=== PATIENT | female | born 1990 | race Caucasian/White ===

== ENCOUNTER 2017-06-20 19:33 | Emergency (ER) | payer MEDICAID ==
--- NOTE | 2017-06-20 21:10 | EDM.PDOC ---
ED HPI GENERAL MEDICAL PROBLEM - General Chief Complaint: ENT Problem Stated Complaint: EARACHE Time Seen by Provider: 06/20/17 20:28 Source of Information: Reports: Patient History Limitations: Reports: No Limitations - History of Present Illness INITIAL COMMENTS - FREE TEXT/NARRATIVE: This lady comes in for a problem with her right ear. She's had pain on and off for months. Recently she was put on some type of the nasal spray but doesn't know if it's a steroid or not. She did see an hand stoner at one time but her ear was not hurting on that particular day. Today the pain seems to be much worse than usual. Her hearing seemed to be okay are just a little bit decreased. - Related Data Allergies Allergy/AdvReac Type Severity Reaction Status Date / Time No Known Allergies Allergy Verified 06/20/17 20:03 Home Meds: Home Meds Cetirizine HCl [Allergy] 06/20/17 [History] Fluticasone Propionate [Flonase] 06/20/17 [History] Social & Family History - Tobacco Use Smoking Status *Q: Never Smoker ED ROS ENT - Review of Systems Review Of Systems: ROS reveals no pertinent complaints other than HPI. ED EXAM, ENT - Physical Exam Exam: See Below Exam Limited By: Other (Exam Limited to the right ear and pharynx) General Appearance: Alert, WD/WN, No Apparent Distress Ears: Other (Ear canal is normal. Tympanic membrane is crystal clear but retracted.) Nose: Normal Inspection Mouth/Throat: Normal Inspection Course - Vital Signs Last Recorded V/S: Last Vital Signs Temp 35.9 C 06/20/17 20:09 Pulse 85 06/20/17 20:09 Resp 14 06/20/17 20:09 BP 150/78 H 06/20/17 20:09 Pulse Ox 98 06/20/17 20:09 Departure - Departure Time of Disposition: 21:08 Disposition: Home, Self-Care 01 Condition: Fair Clinical Impression: Acute otalgia, Eustachian tube dysfunction - Discharge Information Instructions: Eustachian Tube Dysfunction, Earache, Adult Referrals: PCP,None [Primary Care Provider] - Forms: ED Department Discharge Additional Instructions: Take the prednisone 4 tablets daily for 5 days. This will help reduce inflammation and hopefully open up your eustachian tube. This will equalize the pressure behind her eardrum. Right now there is a vacuum that sucking in your eardrum against the little bones inside the right ear and this is causing pain
== END 2017-06-20 21:43 | disposition home or self-care (01) ==
LOC: JP.ED 19:33
DX: H69.91 Unspecified Eustachian tube disorder, right ear (principal)
CPT/HCPCS: 99283

== ENCOUNTER 2017-06-26 18:59 | Emergency (ER) | payer MEDICAID ==
[2017-06-26] MEDS ORDERED: Lidocaine 4% Top Soln LTA 4 ML SYRINGE TOP ONE (19:47)
--- NOTE | 2017-06-26 19:51 | EDM.PDOC ---
ED HPI GENERAL MEDICAL PROBLEM - General Chief Complaint: ENT Problem Stated Complaint: RT EAR PAIN Time Seen by Provider: 06/26/17 19:35 Source of Information: Reports: Patient, RN Notes Reviewed History Limitations: Reports: No Limitations - History of Present Illness INITIAL COMMENTS - FREE TEXT/NARRATIVE: 27-year-old female presents emergency department today complaint of right ear pain she states she's had right ear pain for several months on and off has visited with ENT has been seen in the emergency department for this problem she did try prednisone which gave her some relief but as soon as the prednisone was stopped the pain returns Treatments REGISTERED RADIOLOGIC TECHNOLOGIST: Reports: Other Medication(s), Other (see below) Other Treatments REGISTERED RADIOLOGIC TECHNOLOGIST: Prednisone - Related Data Allergies Allergy/AdvReac Type Severity Reaction Status Date / Time No Known Allergies Allergy Verified 06/20/17 20:03 Home Meds: Home Meds NK [No Known Home Meds] 06/26/17 [History] 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 Denies: Ear Discharge, Throat Pain, Throat Swelling Respiratory: Reports: No Symptoms Cardiovascular: Reports: No Symptoms GI/Abdominal: Reports: No Symptoms : Reports: No Symptoms ED EXAM, ENT - Physical Exam Exam: See Below Exam Limited By: No Limitations General Appearance: Alert, WD/WN, No Apparent Distress Eye Exam: Bilateral Eye: Normal Inspection Ears: Normal External Exam, Normal Canal, Hearing Grossly Normal, Normal TMs Nose: Normal Inspection Mouth/Throat: Normal Inspection, Normal Teeth, Dental Trauma. No: Dental Pain, Dental Tenderness, Tonsillar Erythema, Tonsillar Exudates, Uvular Deviation Head: Atraumatic, Normocephalic Course - Vital Signs Last Recorded V/S: Last Vital Signs Temp 97.6 F 06/26/17 19:15 Pulse 82 06/26/17 19:15 Resp 16 06/26/17 19:15 BP 126/82 06/26/17 19:15 Pulse Ox 98 06/26/17 19:15 - Orders/Labs/Meds Meds: Medications Discontinued Medications Generic Name Dose Route Start Last Admin Trade Name Dahlia MASTERS Reason Stop Dose Admin Lidocaine 4 ml 06/26/17 19:47 Lta 360 Kit Top Soln TOP 06/26/17 19:48 ONETIME ONE Lidocaine HCl 2 ml 06/26/17 19:52 06/26/17 19:56 Xylocaine 4% Top Soln TOP 06/26/17 19:53 3 drop ONETIME ONE Administration Departure - Departure Time of Disposition: 20:03 Disposition: Home, Self-Care 01 Condition: Good Clinical Impression: Otalgia of right ear - Discharge Information Referrals: PCP,None [Primary Care Provider] - Forms: ED Department Discharge Additional Instructions: Continue to use lidocaine topical as needed for pain control, please keep your follow-up appointment with your primary care tomorrow, a referral has been [facility] from July 08 at 8:15 in the morning, call or return to the emergency department worsening of symptoms - Assessment/Plan Plan: Assessment Acuity = acute Site and laterality = otalgia Etiology = suspicious for dental source Manifestations = none Location of injury = Home Lab values = none Plan She had some relief from the lidocaine topical, did set up referral for July 08 dental clinic 8:15 in the morning she follow-up with her primary care tomorrow This note was dictated using [employer] voice recognition software please call with any questions on syntax or kesha.
[2017-06-26] MEDS ORDERED: Lidocaine 4% Top Soln 50 ML Bottle TOP ONE (19:52)
== END 2017-06-26 20:11 | disposition home or self-care (01) ==
LOC: JP.ED 18:59
DX: H92.01 Otalgia, right ear (principal)
CPT/HCPCS: 99283; A9270

== ENCOUNTER 2018-07-08 22:10 | Emergency (ER) | payer MEDICAID ==
--- NOTE | 2018-07-08 22:38 | EDM.PDOC ---
ED HPI GENERAL MEDICAL PROBLEM - General Chief Complaint: Eye Problems Stated Complaint: EYES, RED, ITCHY Time Seen by Provider: 07/08/18 22:20 Source of Information: Reports: Patient History Limitations: Reports: No Limitations - History of Present Illness INITIAL COMMENTS - FREE TEXT/NARRATIVE: 28-year-old female developed rather sudden redness and itching of both eyes, slightly worse on the right side. She tried some lubricating drops and it didn' t help. No visual changes. No previous allergy reactions. No significant pain. 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 EDC October 26 2018 Psychiatric History: Reports: Anxiety, Depression - Infectious Disease History Infectious Disease History: Reports: Chicken Pox Social & Family History - Family History Family Medical History: Noncontributory - Tobacco Use Smoking Status *Q: Never Smoker - Caffeine Use Caffeine Use: Reports: Soda - Recreational Drug Use Recreational Drug Use: No ED ROS GENERAL - Review of Systems Review Of Systems: See Below Constitutional: Denies: Fever HEENT: Denies: Sinus Problem Respiratory: Denies: Shortness of Breath, Wheezing GI/Abdominal: Denies: Nausea, Vomiting Skin: Reports: No Symptoms ED EXAM GENERAL W FULL EYE - Physical Exam Exam: See Below Exam Limited By: No Limitations General Appearance: Alert, No Apparent Distress, Anxious Eye Exam: Bilateral Eye: Conjunctival Injection, Other (Bilateral conjunctiva and scleral erythema, no matter or significant exudate) Eyelids: Bilateral: Erythema Conjunctiva & Sclera: Bilateral: Injected Cornea Exam: Bilateral: Normal Appearance Head: Atraumatic Respiratory/Chest: No Respiratory Distress, Lungs Clear Course - Vital Signs Last Recorded V/S: Last Vital Signs Temp 96.3 F 07/08/18 22:23 Pulse 91 07/08/18 22:23 Resp 11 L 07/08/18 22:23 BP 126/67 07/08/18 22:23 Pulse Ox 97 07/08/18 22:23 - Orders/Labs/Meds Meds: Medications Discontinued Medications Generic Name Dose Route Start Last Admin Trade Name Dahlia PRN Reason Stop Dose Admin Prednisolone Acetate 0.1 ml 07/09/18 06:00 07/08/18 22:38 Pred Forte 1% Ophth Susp EYEBOTH 1 drop QID ELIZABETH Administration Prednisolone Acetate 0.1 ml 07/09/18 06:00 Pred Forte 1% Ophth Susp EYEBOTH QID ELIZABETH - Re-Assessments/Exams Free Text/Narrative Re-Assessment/Exam: 07/08/18 22:37 This patient is having some type of an acute allergic reaction to an exposure to her eyes. She'll be placed on Pred Forte eyedrops 1 drop each eye every 4 hours until improved. Recheck with optometry tomorrow if not significantly improved. Departure - Departure Time of Disposition: 22:39 Disposition: Home, Self-Care 01 Condition: Good Clinical Impression: Allergic conjunctivitis of both eyes - Discharge Information Instructions: Allergic Conjunctivitis, Adult, [id number] Referrals: Xuan Benjamin CNM [Primary Care Provider] - Forms: ED Department Discharge Care Plan Goals: Use 1 drop in each eye every 4 hours until improved, up to 2 full days. Consider rechecking with optometry tomorrow if not improving satisfactorily.
[2018-07-08] MEDS ORDERED: prednisoLONE Acetate 1% Ophth Susp 5 ML Bottle EYEBOTH SCH (23:00)
[2018-07-09] MEDS ORDERED: prednisoLONE Acetate 1% Ophth Susp 5 ML Bottle EYEBOTH SCH ×2 (06:00)
== END 2018-07-08 22:51 | disposition home or self-care (01) ==
LOC: JP.ED 22:10
DX: H10.13 Acute atopic conjunctivitis, bilateral (principal); F41.9 Anxiety disorder, unspecified; F32.9 Major depressive disorder, single episode, unspecified; Z79.899 Other long term (current) drug therapy
CPT/HCPCS: 99283; A9270-GY

== ENCOUNTER 2018-10-24 19:31 | Inpatient (IN) | payer MEDICAID ==
[2018-10-24] MEDS ORDERED: Sodium Chloride 0.9% 10 ML Syringe FLUSH PRN ×3 (19:57→21:44)
[2018-10-24] MEDS ORDERED: Lactated Ringers 1,000 ML IV ONE (20:00)
[2018-10-24] MEDS ORDERED: Ropivacaine 100 ML ONE (20:38)
[2018-10-24] MEDS ORDERED: ePHEDrine 50 MG/ML SDV ONE (20:47)
[2018-10-24] MEDS ORDERED: Ondansetron 4 MG/2 ML SDV IV PRN (20:49)
--- NOTE | 2018-10-24 20:58 | PCM.LDHP ---
L&D History of Present Illness - General Date of Service: 10/24/18 Admit Problem/Dx: Patient Status Order with Admit Dx/Problem 10/24/18 19:57 Patient Status [ADT] Routine 10/24/18 20:49 Patient Status [ADT] Routine Admission Diagnosis/Problem Admission Diagnosis/Problem - Related Data Allergies/Adverse Reactions: Allergies Allergy/AdvReac Type Severity Reaction Status Date / Time No Known Allergies Allergy Verified 07/08/18 22:26 Home Medications: Home Meds PNV95/Ferrous Fumarate/FA [ Vitamins Tablet] 1 tab PO DAILY 07/08/18 [ History] Sertraline [Zoloft] 50 mg PO DAILY 07/08/18 [History] hydrOXYzine HCl [hydrOXYzine] 25 mg PO BEDTIME 10/10/18 [History] Past Medical History HEENT History: Reports: Otitis Media Respiratory History: Reports: Other (See Below) Other Respiratory History: bronchospasms uses an inhaler prn 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 EDC October 26 2018 Psychiatric History: Reports: Anxiety, Depression - Infectious Disease History Infectious Disease History: Reports: Chicken Pox - Past Surgical History Female Surgical History: Reports: D&C Social & Family History - Family History Family Medical History: Noncontributory - Tobacco Use Smoking Status *Q: Former Smoker Used Tobacco, but Quit: Yes Month/Year Tobacco Last Used: October Second Hand Smoke Exposure: No - Caffeine Use Caffeine Use: Reports: Soda - Recreational Drug Use Recreational Drug Use: No H&P Review of Systems - Review of Systems: Review Of Systems: See Below General: Reports: No Symptoms HEENT: Reports: No Symptoms Pulmonary: Reports: No Symptoms Cardiovascular: Reports: No Symptoms Gastrointestinal: Reports: No Symptoms Genitourinary: Reports: No Symptoms Musculoskeletal: Reports: No Symptoms Skin: Reports: No Symptoms Psychiatric: Reports: No Symptoms Neurological: Reports: No Symptoms Hematologic/Lymphatic: Reports: No Symptoms Immunologic: Reports: No Symptoms L&D Exam - Exam Exam: See Below - Vital Signs Weight: 73 kg - OB Specific Contraction Intensity: Strong Movement: Active Heart Tones: Present Heart Rate (FHR) Variability: Moderate (6-25 bmp) Presentation: Vertex - Exam General: Alert, Oriented, Cooperative HEENT: PERRLA, Conjunctiva Clear, EACs Clear, EOMI, Hearing Intact, Mucosa Moist & [place], Nares Patent, Normal Nasal Septum, Posterior Pharynx Clear, Pupils Equal, Pupils Reactive, TMs Clear Neck: Supple, Trachea Midline Lungs: Clear to Auscultation, Normal Respiratory Effort Cardiovascular: Regular Rate, Regular Rhythm GI/Abdominal Exam: Normal Bowel Sounds, Soft, Non-Tender, No Organomegaly, No Distention, No Abnormal Bruit, No Mass, Pelvis Stable Rectal Exam: Normal Exam, Normal Rectal Tone Genitourinary: Normal external exam, Normal bimanual exam, Normal speculum exam , Cervical dilitation Back Exam: Normal Inspection, Full Range of Motion Extremities: Normal Inspection, Normal Range of Motion, Non-Tender, No Pedal Edema, Normal Capillary Refill Skin: Warm, Dry, Intact Neurological: Cranial Nerves Intact, Reflexes Equal Bilateral Psychiatric: Alert, Normal Affect, Normal Mood - Patient Data Lab Results Last 24 hrs: Laboratory Results - last 24 hr 10/24/18 10/24/18 10/24/18 Range/Units 19:57 19:57 19:57 WBC 12.1 H (4.5-11.0) K/uL RBC 4.40 (3.30-5.50) M/uL Hgb 11.2 L (12.0-15.0) g/dL Hct 35.4 L (36.0-48.0) % MCV 81 (80-98) fL MCH 26 L (27-31) pg MCHC 32 (32-36) % Plt Count 217 (150-400) K/uL Neut % (Auto) 75 H (36-66) % Lymph % (Auto) 16 L (24-44) % Prentiss % (Auto) 8 H (2-6) % Eos % (Auto) 1 L (2-4) % Baso % (Auto) 0 (0-1) % Urine Color Yellow Urine Appearance Slightly cloudy Urine pH 7.0 (4.5-8.0) Ur Specific [place] 1.015 (1.008-1.030) Urine Protein Negative (NEGATIVE) mg/dL Urine Glucose (UA) Normal (NEGATIVE) mg/dL Urine Ketones Negative (NEGATIVE) mg/dL Urine Occult Blood Large (NEGATIVE) Urine Nitrite Negative (NEGATIVE) Urine Bilirubin Negative (NEGATIVE) Urine Urobilinogen Normal (NORMAL) mg/dL Ur Leukocyte Esterase Negative (NEGATIVE) Urine RBC 10-20 H (0-5) Urine WBC 0-5 (0-5) Ur Epithelial Cells Moderate Amorphous Sediment Not seen Urine Bacteria Moderate Urine Mucus Not seen Urine Opiates Screen Negative (NEGATIVE) Ur Oxycodone Screen Negative (NEGATIVE) Urine Methadone Screen Negative (NEGATIVE) Ur Propoxyphene Screen Negative (NEGATIVE) Ur Barbiturates Screen Negative (NEGATIVE) Ur Tricyclics Screen Negative (NEGATIVE) Ur Phencyclidine Scrn Negative (NEGATIVE) Ur Amphetamine Screen Negative (NEGATIVE) U Methamphetamines Scrn Negative (NEGATIVE) Urine MDMA Screen Negative (NEGATIVE) U Benzodiazepines Scrn Negative (NEGATIVE) U Cocaine Metab Screen Negative (NEGATIVE) U Marijuana (THC) Screen Negative (NEGATIVE) Result Diagrams: 10/24/18 19:57 - Problem List (1) Labor established SNOMED Code(s): 75729294 ICD Code: [id number] - Status: Acute Current Visit: Yes (2) SNOMED Code(s): 00140984 ICD Code: Z34.90 - ENCNTR FOR SUPRVSN OF NORMAL , UNSP, UNSP TRIMESTER Status: Acute Current Visit: Yes Problem List Initiated/Reviewed/Updated: Yes Orders Last 24hrs: Active Orders 24 hr Category Date Time Status Patient Status [ADT] Routine ADT 10/24/18 19:57 Active Patient Status [ADT] Routine ADT 10/24/18 20:49 Ordered Ambulate [RC] PER UNIT ROUTINE Care 10/24/18 20:49 Ordered Communication Order [RC] ASDIRECTED Care 10/24/18 19:57 Active Communication Order [RC] ASDIRECTED Care 10/24/18 20:49 Ordered Heart Tones [RC] PER UNIT ROUTINE Care 10/24/18 19:57 Active Heart Tones [RC] PER UNIT ROUTINE Care 10/24/18 20:49 Ordered Non Stress Test [RC] Click to Edit Care 10/24/18 19:57 Active Non Stress Test [RC] Click to Edit Care 10/24/18 20:49 Ordered May Shower [RC] ASDIRECTED Care 10/24/18 20:49 Ordered Notify Provider Vital Signs [RC] PRN Care 10/24/18 19:58 Active Notify Provider Vital Signs [RC] PRN Care 10/24/18 20:49 Ordered Notify Provider [RC] PRN Care 10/24/18 19:57 Active Notify Provider [RC] PRN Care 10/24/18 20:49 Ordered PCEA Epidural [RC] ASDIRECTED Care 10/24/18 20:37 Active PCEA Epidural [RC] ASDIRECTED Care 10/24/18 20:38 Active Up ad [place] [RC] ASDIRECTED Care 10/24/18 20:49 Ordered VTE/DVT Education [RC] Click to Edit Care 10/24/18 20:51 Ordered Vital Signs [RC] PER UNIT ROUTINE Care 10/24/18 19:57 Active Vital Signs [RC] PER UNIT ROUTINE Care 10/24/18 20:49 Ordered Ondansetron [Zofran] Med 10/24/18 20:49 Ordered 4 mg IV Q4H PRN Sodium Chloride 0.9% [Saline Flush] Med 10/24/18 19:57 Active 10 ml FLUSH ASDIRECTED PRN Sodium Chloride 0.9% [Saline Flush] Med 10/24/18 20:49 Ordered 10 ml FLUSH ASDIRECTED PRN DVT/VTE Prophylaxis Reflex [OM.PC] Routine Oth 10/24/18 20:49 Ordered Epidural Catheter Management [OM.PC] Routine Oth 10/24/18 20:37 Ordered Saline Lock Insert [OM.PC] Routine Oth 10/24/18 19:57 Ordered Saline Lock Insert [OM.PC] Routine Oth 10/24/18 20:49 Ordered Resuscitation Status Routine Resus Stat 10/24/18 19:57 Ordered Medication Orders Sodium Chloride (Saline Flush) 10 ml FLUSH ASDIRECTED PRN PRN Reason: Keep Vein Open Assessment/Plan Comment:: 10/24/2018 28 yo here at 39 5/7 gestational weeks came in in active labor SVE-4-5/90/-1 bulging bag of saucedo FHTs- category one Patient is requesting and epidural Plan- Get patient an epidural for pain control per her request Continue to monitor for active labor Continue to monitor FHTs Plan and anticipate a vaginal delivery
[2018-10-24] MEDS ORDERED: diphenhydrAMINE 50 MG/ML SDV IVPUSH PRN ×2 (21:44)
[2018-10-24] MEDS ORDERED: ePHEDrine 50 MG/ML SDV IVPUSH PRN (21:44)
[2018-10-24] MEDS ORDERED: Naloxone 0.4 MG/ML SDV IVPUSH PRN (21:44)
--- NOTE | 2018-10-24 22:09 | ANES ---
DATE OF SERVICE: 10/24/2018 TIME: 2039. INDICATION: I was called to the Labor and Delivery unit by Xuan Benjamin to evaluate Ms. Bright for a labor epidural. She is approximately 3 to 4 cm and progressing nicely. Risks and benefits of procedure were explained to the patient, she was proceed with labor epidural. TECHNIQUE: She was placed in a sitting position. Her back was prepped x3 with Betadine and 1% lidocaine skin local was used. The epidural was placed at L3-4 using a 17-gauge Tuohy needle in loss of resistance technique. The epidural had very good feel throughout, and the epidural space was easily identified. There was negative CSF, negative blood, negative paresthesias noted. Therefore, a catheter was threaded to 13 cm at the skin. There was negative CSF, negative blood, and negative paresthesias noted at the catheter as well. A 1.5% lidocaine test dose of 3 mL was given and this test dose was negative. Therefore, the catheter was secured with Tegaderm and tape and the patient was placed in a supine position. A bolus of 0.2% ropivacaine at 12 mL was given. The patient got very good relief from this. Therefore, a 0.2% ropivacaine drip was started at 12 mL/h. Her vital signs remained stable throughout the procedure and nurse was with me for the entire procedure. We will continue to monitor her throughout her Labor and Delivery stay. Srinivas Jesus CRNA /[id number]
[2018-10-25] MEDS ORDERED: Lanolin 100% Cream 40 GM Tube TOP PRN (00:01)
[2018-10-25] MEDS ORDERED: Witch Hazel Medicated Pads 100/Jar TOP PRN (00:01)
[2018-10-25] MEDS ORDERED: Benzocaine 20% Top Spray 56 GM Bottle TOP PRN (00:01)
[2018-10-25] MEDS ORDERED: Acetaminophen 325 MG Tab, 50 Tab Bulk Bottle PO PRN (00:04)
[2018-10-25] MEDS ORDERED: Ibuprofen 200 MG Tab, 24 Tab Bulk Bottle PO PRN (00:04)
[2018-10-25] MEDS: hydrOXYzine HCl 25 MG Tab PO PRN ×2 (01:49→19:49)
--- NOTE | 2018-10-25 08:08 | PCM.DEL ---
L & D Note - General Info Date of Service: 10/24/18 Mother's Due Date: 10/26/18 - Delivery Note Labor: Spontaneous Delivery Outcome: Livebirth Infant Delivery Method: Spontaneous Vaginal Delivery-Single Infant Delivery Mode: Spontaneous Presentation: Right Occiput Anterior (BILLY) Nuchal Cord: Present, Reduced Anesthesia Type: Epidural Amniotic Fluid Description: Clear Episiotomy Type: None Laceration: 1st Degree, Perineal Suture type: Vicryl Suture size: 3-0 Placenta: Intact, Spontaneous Cord: 3 Vessels Estimated Blood Loss: 250 Resuscitation Needed: No [place]: Bulb Syringe, Stimulated, Warmed Provider: Xuan Benjamin Score 1 min: 8 Score 5 min: 8 Score 10 min: 9 Second Stage Interventions: Reports: Second Nurse Assessed Progress of Descent, Second Nurse Reviewed Contraction Pattern, Encouragement Given, Pushing Effectively, Pushing, McRobert's Position, Pushing, Stirrups/Leg Supports Delivery Comments (Free Text/Narrative):: 28 yo here at 39 5/7 gestational weeks delivered a viable female at 2342 on 10/24/2018 in BILLY position over an intact perineum. Patient shortly before becoming complete did have some episodes of extreme restless legs, back pain, and what she said was one sided on her abdomen. Since patient was complete we worked with her and did different leg positioning to help with restless legs. did have a loose nuchal cord times one that was easily reduced during delivery of the head and shoulders. was then placed on prewarmed blanket on mothers abdomen. was a little stunned so some stimulation was done, drying of infant, and bulb suction was used. was still not as active and so was brought to warmer for initial assessment, cord was double clamped and cut by provider. Infant then began to pink in color and vigorously cry with some moderate stimulation, percussion, and bulb suction. APGARS-8/8/9, weight 7lbs 9oz, length-20.5 inches. Placenta then spontaneous and intact, EBL-250ml. First degree perineal repaired in usual fashion, no other lacerations noted of vagina, cervix, rectum, or labia. Infant now skin to skin with mother in labor room and both are stable. Stages of labor- 1st stage:[id number] 2nd stage: [id number] 3rd [id number] - General Info Date of Service: 10/25/18 Functional Status: Reports: Pain Controlled - Review of Systems General: Reports: No Symptoms HEENT: Reports: No Symptoms Pulmonary: Reports: No Symptoms Cardiovascular: Reports: No Symptoms Gastrointestinal: Reports: No Symptoms Genitourinary: Reports: No Symptoms Musculoskeletal: Reports: No Symptoms Skin: Reports: No Symptoms Neurological: Reports: No Symptoms Psychiatric: Reports: No Symptoms - Patient Data Vitals - Most Recent: Last Vital Signs Temp 36.2 C 10/25/18 03:27 Pulse 101 H 10/25/18 03:27 Resp 16 10/25/18 03:27 BP 127/68 10/25/18 03:27 Pulse Ox 97 10/25/18 00:45 Weight - Most Recent: 73 kg I&O - Last 24 Hours: Intake & Output 10/24/18 10/25/18 10/25/18 22:59 06:59 14:59 Intake Total 2517 Output Total 150 Balance 2367 Lab Results Last 24 Hours: Laboratory Results - last 24 hr 10/24/18 10/24/18 10/24/18 Range/Units 19:57 19:57 19:57 WBC 12.1 H (4.5-11.0) K/uL RBC 4.40 (3.30-5.50) M/uL Hgb 11.2 L (12.0-15.0) g/dL Hct 35.4 L (36.0-48.0) % MCV 81 (80-98) fL MCH 26 L (27-31) pg MCHC 32 (32-36) % Plt Count 217 (150-400) K/uL Neut % (Auto) 75 H (36-66) % Lymph % (Auto) 16 L (24-44) % [place] % (Auto) 8 H (2-6) % Eos % (Auto) 1 L (2-4) % Baso % (Auto) 0 (0-1) % Urine Color Yellow Urine Appearance Slightly cloudy Urine pH 7.0 (4.5-8.0) Ur Specific [place] 1.015 (1.008-1.030) Urine Protein Negative (NEGATIVE) mg/dL Urine Glucose (UA) Normal (NEGATIVE) mg/dL Urine Ketones Negative (NEGATIVE) mg/dL Urine Occult Blood Large (NEGATIVE) Urine Nitrite Negative (NEGATIVE) Urine Bilirubin Negative (NEGATIVE) Urine Urobilinogen Normal (NORMAL) mg/dL Ur Leukocyte Esterase Negative (NEGATIVE) Urine RBC 10-20 H (0-5) Urine WBC 0-5 (0-5) Ur Epithelial Cells Moderate Amorphous Sediment Not seen Urine Bacteria Moderate Urine Mucus Not seen Urine Opiates Screen Negative (NEGATIVE) Ur Oxycodone Screen Negative (NEGATIVE) Urine Methadone Screen Negative (NEGATIVE) Ur Propoxyphene Screen Negative (NEGATIVE) Ur Barbiturates Screen Negative (NEGATIVE) Ur Tricyclics Screen Negative (NEGATIVE) Ur Phencyclidine Scrn Negative (NEGATIVE) Ur Amphetamine Screen Negative (NEGATIVE) U Methamphetamines Scrn Negative (NEGATIVE) Urine MDMA Screen Negative (NEGATIVE) U Benzodiazepines Scrn Negative (NEGATIVE) U Cocaine Metab Screen Negative (NEGATIVE) U Marijuana (THC) Screen Negative (NEGATIVE) 10/25/18 Range/Units 06:02 WBC 23.1 H (4.5-11.0) K/uL RBC 4.19 (3.30-5.50) M/uL Hgb 10.3 L (12.0-15.0) g/dL Hct 33.9 L (36.0-48.0) % MCV 81 (80-98) fL MCH 25 L (27-31) pg MCHC 30 L (32-36) % Plt Count 189 (150-400) K/uL Neut % (Auto) (36-66) % Lymph % (Auto) (24-44) % [place] % (Auto) (2-6) % Eos % (Auto) (2-4) % Baso % (Auto) (0-1) % Urine Color Urine Appearance Urine pH (4.5-8.0) Ur Specific [place] (1.008-1.030) Urine Protein (NEGATIVE) mg/dL Urine Glucose (UA) (NEGATIVE) mg/dL Urine Ketones (NEGATIVE) mg/dL Urine Occult Blood (NEGATIVE) Urine Nitrite (NEGATIVE) Urine Bilirubin (NEGATIVE) Urine Urobilinogen (NORMAL) mg/dL Ur Leukocyte Esterase (NEGATIVE) Urine RBC (0-5) Urine WBC (0-5) Ur Epithelial Cells Amorphous Sediment Urine Bacteria Urine Mucus Urine Opiates Screen (NEGATIVE) Ur Oxycodone Screen (NEGATIVE) Urine Methadone Screen (NEGATIVE) Ur Propoxyphene Screen (NEGATIVE) Ur Barbiturates Screen (NEGATIVE) Ur Tricyclics Screen (NEGATIVE) Ur Phencyclidine Scrn (NEGATIVE) Ur Amphetamine Screen (NEGATIVE) U Methamphetamines Scrn (NEGATIVE) Urine MDMA Screen (NEGATIVE) U Benzodiazepines Scrn (NEGATIVE) U Cocaine Metab Screen (NEGATIVE) U Marijuana (THC) Screen (NEGATIVE) Med Orders - Current: Current Medications Acetaminophen (Tylenol Bulk Bottle) 325 mg PO Q4H PRN PRN Reason: Pain Last Admin: 10/25/18 02:18 Dose: 325 mg Benzocaine (Rgmf-L-Xwiqnvf 20% [place]) 0 gm TOP Q4H PRN PRN Reason: Perineal Comfort Measure Last Admin: 10/25/18 02:18 Dose: 1 applic Diphenhydramine HCl (Benadryl) 25 mg IVPUSH Q6H PRN PRN Reason: Itching Diphenhydramine HCl (Benadryl) 50 mg IVPUSH Q6H PRN PRN Reason: Itching Emollient Ointment (Lansinoh Hpa) 1 gm TOP ASDIRECTED PRN PRN Reason: Sore Nipples Last Admin: 10/25/18 02:19 Dose: 1 applic Ephedrine Sulfate (Ephedrine Sulfate) 10 mg IVPUSH ASDIRECTED PRN PRN Reason: Hypotension Hydroxyzine HCl (Atarax) 25 mg PO Q6H PRN PRN Reason: Anxiety Last Admin: 10/25/18 01:49 Dose: 25 mg Ibuprofen (Motrin Bulk Bottle) 600 mg PO Q6H PRN PRN Reason: Pain Last Admin: 10/25/18 02:18 Dose: 600 mg Naloxone HCl (Narcan) 0.1 mg IVPUSH ASDIRECTED PRN PRN Reason: Oversedation Ondansetron HCl (Zofran) 4 mg IV Q4H PRN PRN Reason: Nausea/Vomiting Last Admin: 10/24/18 22:01 Dose: 4 mg Sodium Chloride (Saline Flush) 10 ml FLUSH ASDIRECTED PRN PRN Reason: Keep Vein Open Sodium Chloride (Saline Flush) 10 ml FLUSH ASDIRECTED PRN PRN Reason: Keep Vein Open Sodium Chloride (Saline Flush) 10 ml FLUSH ASDIRECTED PRN PRN Reason: Keep Vein Open Witch Jesica (Tucks) 1 pad TOP ASDIRECTED PRN PRN Reason: Hemorrhoids Last Admin: 10/25/18 02:19 Dose: 1 applic Discontinued Medications Ephedrine Sulfate (Ephedrine Sulfate) Confirm Administered Dose 50 mg .ROUTE .STK-MED ONE Stop: 10/24/18 20:48 Last Admin: 10/24/18 21:46 Dose: Not Given Ropivacaine (Naropin 0.2%) Confirm Administered Dose 100 mls @ as directed .ROUTE .STK-MED ONE Stop: 10/24/18 20:39 Oxytocin/Sodium Chloride (Pitocin In Ns 20 Units/1,000 Ml) Confirm Administered Dose 20 unit in 1,000 mls @ as directed .ROUTE .STK-MED ONE Stop: 10/24/18 23:10 Last Admin: 10/25/18 01:49 Dose: Not Given Oxytocin/Sodium Chloride (Pitocin In Ns 20 Units/1,000 Ml) 20 unit in 1,000 mls @ 2,997 mls/hr IV ONETIME ONE; Protocol Stop: 10/25/18 00:24 Last Admin: 10/24/18 23:50 Dose: 999 munits/min, 2,997 mls/hr Lactated Ringer's (Ringers, Lactated) 1,000 mls @ 999 mls/hr IV BOLUS ONE Stop: 10/24/18 21:00 Last Admin: 10/24/18 20:00 Dose: 999 mls/hr - Exam General: Alert, Oriented, Cooperative HEENT: Pupils Equal, Pupils Reactive, EOMI, Mucous Membr. Moist/[place] Neck: Supple Lungs: Clear to Auscultation, Normal Respiratory Effort Cardiovascular: Regular Rate, Regular Rhythm GI/Abdominal Exam: Normal Bowel Sounds, Soft, Non-Tender, No Organomegaly, No Distention, No Abnormal Bruit, No Mass, Pelvis Stable (Female) Exam: Normal External Exam, Normal Speculum Exam, Normal Bimanual Exam, Enlarged Uterus, Vaginal Bleeding Back Exam: Normal Inspection, Full Range of Motion Extremities: Normal Inspection, Normal Range of Motion, Non-Tender, No Pedal Edema, Normal Capillary Refill Skin: Warm, Dry, Intact Wound/Incisions: Healing Well Neurological: No New Focal Deficit Psy/Mental Status: Alert, Normal Affect, Normal Mood - Problem List & Annotations (1) Labor established SNOMED Code(s): 09252821 Code(s): MMJ3885 - Status: Acute Current Visit: Yes (2) SNOMED Code(s): 25180987 Code(s): Z34.90 - ENCNTR FOR SUPRVSN OF NORMAL , UNSP, UNSP TRIMESTER Status: Acute Current Visit: Yes (3) Perineal laceration SNOMED Code(s): 039369409 Code(s): QIR3576 - Status: Acute Current Visit: Yes (4) Normal vaginal delivery SNOMED Code(s): 25991375, 592032473 Code(s): O80 - ENCOUNTER FOR FULL-TERM UNCOMPLICATED DELIVERY Status: Acute Current Visit: Yes (5) () SNOMED Code(s): 038406492 Code(s): Z78.9 - OTHER SPECIFIED HEALTH STATUS Status: Acute Current Visit: Yes - Problem List Review Problem List Initiated/Reviewed/Updated: Yes - My Orders Last 24 Hours: My Active Orders 10/24/18 19:57 Patient Status [ADT] Routine Communication Order [RC] ASDIRECTED Heart Tones [RC] PER UNIT ROUTINE Notify Provider [RC] PRN Vital Signs [RC] PER UNIT ROUTINE Sodium Chloride 0.9% [Saline Flush] 10 ml FLUSH ASDIRECTED PRN Saline Lock Insert [OM.PC] Routine Resuscitation Status Routine 10/24/18 19:58 Notify Provider Vital Signs [RC] PRN 10/24/18 20:37 Epidural Catheter Management [OM.PC] Routine 10/24/18 20:49 Patient Status [ADT] Routine Ambulate [RC] PER UNIT ROUTINE Communication Order [RC] ASDIRECTED Heart Tones [RC] PER UNIT ROUTINE Non Stress Test [RC] Click to Edit May Shower [RC] ASDIRECTED Notify Provider Vital Signs [RC] PRN Notify Provider [RC] PRN Up ad [place] [RC] ASDIRECTED Vital Signs [RC] PER UNIT ROUTINE Ondansetron [Zofran] 4 mg IV Q4H PRN Sodium Chloride 0.9% [Saline Flush] 10 ml FLUSH ASDIRECTED PRN DVT/VTE Prophylaxis Reflex [OM.PC] Routine Saline Lock Insert [OM.PC] Routine 10/24/18 20:51 VTE/DVT Education [RC] Click to Edit 10/25/18 00:01 Patient Status [ADT] Routine Vital Signs [RC] PFP Benzocaine [Rrms-A-Pufkhdj 20% [place]] See Dose Instructions TOP Q4H PRN Lanolin [Lansinoh HPA] 1 gm TOP ASDIRECTED PRN Witch Jesica [Tucks] 1 pad TOP ASDIRECTED PRN Assess Lochia [WOMSER] Per Unit Routine Assess Uterine Involution [WOMSER] Per Unit Routine 10/25/18 00:02 Ice Therapy [OM.PC] Per Unit Routine Perineal Care [OM.PC] Per Unit Routine Sitz Bath [OM.PC] Per Unit Routine 10/25/18 00:04 Acetaminophen [Tylenol Bulk Bottle] 325 mg PO Q4H PRN Ibuprofen [Motrin Bulk Bottle] 600 mg PO Q6H PRN 10/25/18 00:17 hydrOXYzine HCl [Atarax] 25 mg PO Q6H PRN - Assessment Assessment:: 10/24/2018 28 yo G2 now P2 here at 39 5/7 weeks gestation delivered without complications 1st degree perineal laceration repaired Labs-O negative, Hep B neg, Hep C neg, HIV neg, RPR nonreactive, Rubella Immune , GBS negative, Hgb-11.2 - Plan Plan:: 10/24/2018 28 yo here at 39 5/7 gestational weeks came in in active labor SVE-4-/-1 bulging bag of saucedo FHTs- category one Patient is requesting and epidural Plan- Get patient an epidural for pain control per her request Continue to monitor for active labor Continue to monitor FHTs Plan and anticipate a vaginal delivery 10/24/2018 Routine cares Can resume atarax for RLS Encourage and support
--- NOTE | 2018-10-25 10:10 | PCM.PNPP ---
- General Info Date of Service: 10/25/18 - Review of Systems General: Reports: No Symptoms HEENT: Reports: No Symptoms Pulmonary: Reports: No Symptoms Cardiovascular: Reports: No Symptoms Gastrointestinal: Reports: No Symptoms Genitourinary: Reports: No Symptoms Musculoskeletal: Reports: No Symptoms Skin: Reports: No Symptoms Neurological: Reports: No Symptoms Psychiatric: Reports: No Symptoms - General Info Date of Service: 10/25/18 - Patient Data Vital Signs - Most Recent: Last Vital Signs Temp 36.2 C 10/25/18 03:27 Pulse 101 H 10/25/18 03:27 Resp 16 10/25/18 03:27 BP 127/68 10/25/18 03:27 Pulse Ox 97 10/25/18 00:45 Weight - Most Recent: 73 kg I&O - Last 24 Hours: Intake & Output 10/24/18 10/25/18 10/25/18 22:59 06:59 14:59 Intake Total 2517 Output Total 150 Balance 2367 Lab Results - Last 24 Hours: Laboratory Results - last 24 hr 10/24/18 10/24/18 10/24/18 Range/Units 19:57 19:57 19:57 WBC 12.1 H (4.5-11.0) K/uL RBC 4.40 (3.30-5.50) M/uL Hgb 11.2 L (12.0-15.0) g/dL Hct 35.4 L (36.0-48.0) % MCV 81 (80-98) fL MCH 26 L (27-31) pg MCHC 32 (32-36) % Plt Count 217 (150-400) K/uL Neut % (Auto) 75 H (36-66) % Lymph % (Auto) 16 L (24-44) % [place] % (Auto) 8 H (2-6) % Eos % (Auto) 1 L (2-4) % Baso % (Auto) 0 (0-1) % Urine Color Yellow Urine Appearance Slightly cloudy Urine pH 7.0 (4.5-8.0) Ur Specific [place] 1.015 (1.008-1.030) Urine Protein Negative (NEGATIVE) mg/dL Urine Glucose (UA) Normal (NEGATIVE) mg/dL Urine Ketones Negative (NEGATIVE) mg/dL Urine Occult Blood Large (NEGATIVE) Urine Nitrite Negative (NEGATIVE) Urine Bilirubin Negative (NEGATIVE) Urine Urobilinogen Normal (NORMAL) mg/dL Ur Leukocyte Esterase Negative (NEGATIVE) Urine RBC 10-20 H (0-5) Urine WBC 0-5 (0-5) Ur Epithelial Cells Moderate Amorphous Sediment Not seen Urine Bacteria Moderate Urine Mucus Not seen Urine Opiates Screen Negative (NEGATIVE) Ur Oxycodone Screen Negative (NEGATIVE) Urine Methadone Screen Negative (NEGATIVE) Ur Propoxyphene Screen Negative (NEGATIVE) Ur Barbiturates Screen Negative (NEGATIVE) Ur Tricyclics Screen Negative (NEGATIVE) Ur Phencyclidine Scrn Negative (NEGATIVE) Ur Amphetamine Screen Negative (NEGATIVE) U Methamphetamines Scrn Negative (NEGATIVE) Urine MDMA Screen Negative (NEGATIVE) U Benzodiazepines Scrn Negative (NEGATIVE) U Cocaine Metab Screen Negative (NEGATIVE) U Marijuana (THC) Screen Negative (NEGATIVE) Blood Type Gel Antibody Screen Rhogam Indicated 10/25/18 10/25/18 Range/Units 06:02 09:14 WBC 23.1 H (4.5-11.0) K/uL RBC 4.19 (3.30-5.50) M/uL Hgb 10.3 L (12.0-15.0) g/dL Hct 33.9 L (36.0-48.0) % MCV 81 (80-98) fL MCH 25 L (27-31) pg MCHC 30 L (32-36) % Plt Count 189 (150-400) K/uL Neut % (Auto) (36-66) % Lymph % (Auto) (24-44) % [place] % (Auto) (2-6) % Eos % (Auto) (2-4) % Baso % (Auto) (0-1) % Urine Color Urine Appearance Urine pH (4.5-8.0) Ur Specific [place] (1.008-1.030) Urine Protein (NEGATIVE) mg/dL Urine Glucose (UA) (NEGATIVE) mg/dL Urine Ketones (NEGATIVE) mg/dL Urine Occult Blood (NEGATIVE) Urine Nitrite (NEGATIVE) Urine Bilirubin (NEGATIVE) Urine Urobilinogen (NORMAL) mg/dL Ur Leukocyte Esterase (NEGATIVE) Urine RBC (0-5) Urine WBC (0-5) Ur Epithelial Cells Amorphous Sediment Urine Bacteria Urine Mucus Urine Opiates Screen (NEGATIVE) Ur Oxycodone Screen (NEGATIVE) Urine Methadone Screen (NEGATIVE) Ur Propoxyphene Screen (NEGATIVE) Ur Barbiturates Screen (NEGATIVE) Ur Tricyclics Screen (NEGATIVE) Ur Phencyclidine Scrn (NEGATIVE) Ur Amphetamine Screen (NEGATIVE) U Methamphetamines Scrn (NEGATIVE) Urine MDMA Screen (NEGATIVE) U Benzodiazepines Scrn (NEGATIVE) U Cocaine Metab Screen (NEGATIVE) U Marijuana (THC) Screen (NEGATIVE) Blood Type O NEGATIVE Gel Antibody Screen Negative Rhogam Indicated Yes, baby rh pos Med Orders - Current: Current Medications Acetaminophen (Tylenol Bulk Bottle) 325 mg PO Q4H PRN PRN Reason: Pain Last Admin: 10/25/18 02:18 Dose: 325 mg Benzocaine (Vptg-V-Kljyioe 20% [place]) 0 gm TOP Q4H PRN PRN Reason: Perineal Comfort Measure Last Admin: 10/25/18 02:18 Dose: 1 applic Diphenhydramine HCl (Benadryl) 25 mg IVPUSH Q6H PRN PRN Reason: Itching Diphenhydramine HCl (Benadryl) 50 mg IVPUSH Q6H PRN PRN Reason: Itching Emollient Ointment (Lansinoh Hpa) 1 gm TOP ASDIRECTED PRN PRN Reason: Sore Nipples Last Admin: 10/25/18 02:19 Dose: 1 applic Ephedrine Sulfate (Ephedrine Sulfate) 10 mg IVPUSH ASDIRECTED PRN PRN Reason: Hypotension Hydroxyzine HCl (Atarax) 25 mg PO Q6H PRN PRN Reason: Anxiety Last Admin: 10/25/18 01:49 Dose: 25 mg Ibuprofen (Motrin Bulk Bottle) 600 mg PO Q6H PRN PRN Reason: Pain Last Admin: 10/25/18 02:18 Dose: 600 mg Naloxone HCl (Narcan) 0.1 mg IVPUSH ASDIRECTED PRN PRN Reason: Oversedation Ondansetron HCl (Zofran) 4 mg IV Q4H PRN PRN Reason: Nausea/Vomiting Last Admin: 10/24/18 22:01 Dose: 4 mg Sodium Chloride (Saline Flush) 10 ml FLUSH ASDIRECTED PRN PRN Reason: Keep Vein Open Sodium Chloride (Saline Flush) 10 ml FLUSH ASDIRECTED PRN PRN Reason: Keep Vein Open Sodium Chloride (Saline Flush) 10 ml FLUSH ASDIRECTED PRN PRN Reason: Keep Vein Open Witch Jesica (Tucks) 1 pad TOP ASDIRECTED PRN PRN Reason: Hemorrhoids Last Admin: 10/25/18 02:19 Dose: 1 applic Discontinued Medications Ephedrine Sulfate (Ephedrine Sulfate) Confirm Administered Dose 50 mg .ROUTE .STK-MED ONE Stop: 10/24/18 20:48 Last Admin: 10/24/18 21:46 Dose: Not Given Ropivacaine (Naropin 0.2%) Confirm Administered Dose 100 mls @ as directed .ROUTE .STK-MED ONE Stop: 10/24/18 20:39 Oxytocin/Sodium Chloride (Pitocin In Ns 20 Units/1,000 Ml) Confirm Administered Dose 20 unit in 1,000 mls @ as directed .ROUTE .STK-MED ONE Stop: 10/24/18 23:10 Last Admin: 10/25/18 01:49 Dose: Not Given Oxytocin/Sodium Chloride (Pitocin In Ns 20 Units/1,000 Ml) 20 unit in 1,000 mls @ 2,997 mls/hr IV ONETIME ONE; Protocol Stop: 10/25/18 00:24 Last Admin: 10/24/18 23:50 Dose: 999 munits/min, 2,997 mls/hr Lactated Ringer's (Ringers, Lactated) 1,000 mls @ 999 mls/hr IV BOLUS ONE Stop: 10/24/18 21:00 Last Admin: 10/24/18 20:00 Dose: 999 mls/hr - Interaction Disposition, : in Room with Family Infant Interaction: Holding Feeding: Breastfed ; Nursed Well Support Person: Significant Other - Recovery Exam Fundal Tone: Firm Fundal Level: 2 Fingerbreadths Below Umbilicus Fundal Placement: Midline Lochia Amount: Small Lochia Color: Rubra/Red Perineum Description: Intact, Minimal Bruising/Swelling Episiotomy/Laceration: Approximated Bladder Status: Voiding Urinary Elimination: Voided - Exam General: Alert, Oriented HEENT: Pupils Equal Neck: Supple Lungs: Clear to Auscultation, Normal Respiratory Effort Cardiovascular: Regular Rate, Regular Rhythm GI/Abdominal Exam: Normal Bowel Sounds, Soft, Non-Tender, No Organomegaly, No Distention, No Abnormal Bruit, No Mass, Pelvis Stable Extremities: Normal Inspection, Normal Range of Motion, Non-Tender, No Pedal Edema, Normal Capillary Refill Skin: Warm, Dry, Intact Wound/Incisions: Healing Well Neurological: No New Focal Deficit Psy/Mental Status: Alert, Normal Affect, Normal Mood - Problem List & Annotations (1) Labor established SNOMED Code(s): 80309495 Code(s): WAS2628 - Status: Acute Current Visit: Yes (2) SNOMED Code(s): 46459756 Code(s): Z34.90 - ENCNTR FOR SUPRVSN OF NORMAL , UNSP, UNSP TRIMESTER Status: Acute Current Visit: Yes Qualifiers: Weeks of gestation: 39 weeks Qualified Code(s): Z3A.39 - 39 weeks gestation of (3) Perineal laceration SNOMED Code(s): 341809278 Code(s): JID3419 - Status: Acute Current Visit: Yes (4) Normal vaginal delivery SNOMED Code(s): 00653281, 183494698 Code(s): O80 - ENCOUNTER FOR FULL-TERM UNCOMPLICATED DELIVERY Status: Acute Current Visit: Yes (5) () SNOMED Code(s): 186513962 Code(s): Z78.9 - OTHER SPECIFIED HEALTH STATUS Status: Acute Current Visit: Yes - Problem List Review Problem List Initiated/Reviewed/Updated: Yes - My Orders Last 24 Hours: My Active Orders 10/24/18 19:57 Patient Status [ADT] Routine Vital Signs [RC] PER UNIT ROUTINE Sodium Chloride 0.9% [Saline Flush] 10 ml FLUSH ASDIRECTED PRN Saline Lock Insert [OM.PC] Routine Resuscitation Status Routine 10/24/18 20:37 Epidural Catheter Management [OM.PC] Routine 10/24/18 20:49 Patient Status [ADT] Routine Ambulate [RC] PER UNIT ROUTINE May Shower [RC] ASDIRECTED Notify Provider Vital Signs [RC] PRN Up ad [place] [RC] ASDIRECTED Vital Signs [RC] PER UNIT ROUTINE Ondansetron [Zofran] 4 mg IV Q4H PRN Sodium Chloride 0.9% [Saline Flush] 10 ml FLUSH ASDIRECTED PRN DVT/VTE Prophylaxis Reflex [OM.PC] Routine Saline Lock Insert [OM.PC] Routine 10/24/18 20:51 VTE/DVT Education [RC] Click to Edit 10/25/18 00:01 Patient Status [ADT] Routine Benzocaine [Yivl-O-Tolgirn 20% [place]] See Dose Instructions TOP Q4H PRN Lanolin [Lansinoh HPA] 1 gm TOP ASDIRECTED PRN Witch Jesica [Tucks] 1 pad TOP ASDIRECTED PRN Assess Lochia [WOMSER] Per Unit Routine Assess Uterine Involution [WOMSER] Per Unit Routine 10/25/18 00:02 Ice Therapy [OM.PC] Per Unit Routine Perineal Care [OM.PC] Per Unit Routine Sitz Bath [OM.PC] Per Unit Routine 10/25/18 00:04 Acetaminophen [Tylenol Bulk Bottle] 325 mg PO Q4H PRN Ibuprofen [Motrin Bulk Bottle] 600 mg PO Q6H PRN 10/25/18 00:17 hydrOXYzine HCl [Atarax] 25 mg PO Q6H PRN 10/25/18 09:14 SCREEN [BBK] Routine PATIENT RETYPE [BBK] Routine RHOGAM, [RHIG WORKUP, ] [BBK] Routine 10/25/18 10:01 RH IMMUNE GLOBULIN [BBK] Routine - Assessment Assessment:: 10/24/2018 28 yo G2 now P2 here at 39 5/7 weeks gestation delivered without complications 1st degree perineal laceration repaired Labs-O negative, Hep B neg, Hep C neg, HIV neg, RPR nonreactive, Rubella Immune , GBS negative, Hgb-11.2 10/25/2018 day one Perineal laceration-no signs of hematoma Voiding and passing gas Fundus firm and bleeding decreasing Happy with well HGB-10.3 - Plan Plan:: 10/24/2018 28 yo here at 39 5/7 gestational weeks came in in active labor SVE-4-/-1 bulging bag of saucedo FHTs- category one Patient is requesting and epidural Plan- Get patient an epidural for pain control per her request Continue to monitor for active labor Continue to monitor FHTs Plan and anticipate a vaginal delivery 10/24/2018 Routine cares Can resume atarax for RLS Encourage and support 10/25/2018 Continue routine cares Continue to encourage and support Plan discharge home tomorrow CBC in am
--- NOTE | 2018-10-26 07:56 | PCM.PNPP ---
- General Info Date of Service: 10/26/18 (PPD 2 D/C) Admission Dx/Problem (Free Text): Patient Status Order with Admit Dx/Problem 10/24/18 19:57 Patient Status [ADT] Routine 10/24/18 20:49 Patient Status [ADT] Routine Admission Diagnosis/Problem Admission Diagnosis/Problem Functional Status: Reports: Pain Controlled - Review of Systems General: Reports: No Symptoms HEENT: Reports: No Symptoms Pulmonary: Reports: No Symptoms Cardiovascular: Reports: No Symptoms Gastrointestinal: Reports: No Symptoms Genitourinary: Reports: No Symptoms Musculoskeletal: Reports: No Symptoms Skin: Reports: No Symptoms Neurological: Reports: No Symptoms Psychiatric: Reports: No Symptoms - General Info Date of Service: 10/26/18 - Patient Data Vital Signs - Most Recent: Last Vital Signs Temp 96.2 F 10/25/18 20:49 Pulse 91 10/26/18 03:00 Resp 16 10/26/18 03:00 BP 117/64 10/26/18 03:00 Pulse Ox 99 10/26/18 03:00 Weight - Most Recent: 160 lb 14.999 oz I&O - Last 24 Hours: Intake & Output 10/25/18 10/26/18 10/26/18 22:59 06:59 14:59 Intake Total 3000 Balance 3000 Lab Results - Last 24 Hours: Laboratory Results - last 24 hr 10/25/18 10/26/18 Range/Units 09:14 05:50 WBC 10.6 (4.5-11.0) K/uL RBC 4.36 (3.30-5.50) M/uL Hgb 10.8 L (12.0-15.0) g/dL Hct 35.7 L (36.0-48.0) % MCV 82 (80-98) fL MCH 25 L (27-31) pg MCHC 30 L (32-36) % Plt Count 177 (150-400) K/uL Neut % (Auto) 64 (36-66) % Lymph % (Auto) 28 (24-44) % [place] % (Auto) 6 (2-6) % Eos % (Auto) 2 (2-4) % Baso % (Auto) 0 (0-1) % Blood Type O NEGATIVE Gel Antibody Screen Negative Rhogam Indicated Yes, baby rh pos Med Orders - Current: Current Medications Acetaminophen (Tylenol Bulk Bottle) 325 mg PO Q4H PRN PRN Reason: Pain Last Admin: 10/25/18 02:18 Dose: 325 mg Benzocaine (Hmmq-E-Shpxyat 20% [place]) 0 gm TOP Q4H PRN PRN Reason: Perineal Comfort Measure Last Admin: 10/25/18 02:18 Dose: 1 applic Diphenhydramine HCl (Benadryl) 25 mg IVPUSH Q6H PRN PRN Reason: Itching Diphenhydramine HCl (Benadryl) 50 mg IVPUSH Q6H PRN PRN Reason: Itching Emollient Ointment (Lansinoh Hpa) 1 gm TOP ASDIRECTED PRN PRN Reason: Sore Nipples Last Admin: 10/25/18 02:19 Dose: 1 applic Ephedrine Sulfate (Ephedrine Sulfate) 10 mg IVPUSH ASDIRECTED PRN PRN Reason: Hypotension Hydroxyzine HCl (Atarax) 25 mg PO Q6H PRN PRN Reason: Anxiety Last Admin: 10/25/18 19:49 Dose: 25 mg Ibuprofen (Motrin Bulk Bottle) 600 mg PO Q6H PRN PRN Reason: Pain Last Admin: 10/25/18 02:18 Dose: 600 mg Naloxone HCl (Narcan) 0.1 mg IVPUSH ASDIRECTED PRN PRN Reason: Oversedation Ondansetron HCl (Zofran) 4 mg IV Q4H PRN PRN Reason: Nausea/Vomiting Last Admin: 10/24/18 22:01 Dose: 4 mg Sodium Chloride (Saline Flush) 10 ml FLUSH ASDIRECTED PRN PRN Reason: Keep Vein Open Sodium Chloride (Saline Flush) 10 ml FLUSH ASDIRECTED PRN PRN Reason: Keep Vein Open Sodium Chloride (Saline Flush) 10 ml FLUSH ASDIRECTED PRN PRN Reason: Keep Vein Open Witch Jesica (Tucks) 1 pad TOP ASDIRECTED PRN PRN Reason: Hemorrhoids Last Admin: 10/25/18 02:19 Dose: 1 applic Discontinued Medications Ephedrine Sulfate (Ephedrine Sulfate) Confirm Administered Dose 50 mg .ROUTE .STK-MED ONE Stop: 10/24/18 20:48 Last Admin: 10/24/18 21:46 Dose: Not Given Ropivacaine (Naropin 0.2%) Confirm Administered Dose 100 mls @ as directed .ROUTE .STK-MED ONE Stop: 10/24/18 20:39 Oxytocin/Sodium Chloride (Pitocin In Ns 20 Units/1,000 Ml) Confirm Administered Dose 20 unit in 1,000 mls @ as directed .ROUTE .STK-MED ONE Stop: 10/24/18 23:10 Last Admin: 10/25/18 01:49 Dose: Not Given Oxytocin/Sodium Chloride (Pitocin In Ns 20 Units/1,000 Ml) 20 unit in 1,000 mls @ 2,997 mls/hr IV ONETIME ONE; Protocol Stop: 10/25/18 00:24 Last Admin: 10/24/18 23:50 Dose: 999 munits/min, 2,997 mls/hr Lactated Ringer's (Ringers, Lactated) 1,000 mls @ 999 mls/hr IV BOLUS ONE Stop: 10/24/18 21:00 Last Admin: 10/24/18 20:00 Dose: 999 mls/hr - Infant Interaction Infant Disposition, : Aline in Room with Family Infant Interaction: Holding Feeding: Breastfed ; Nursed Well Support Person: Significant Other - Recovery Exam Fundal Tone: Firm Fundal Level: 2 Fingerbreadths Below Umbilicus Fundal Placement: Midline Lochia Amount: Small Lochia Color: Rubra/Red Perineum Description: Intact, Minimal Bruising/Swelling Episiotomy/Laceration: Approximated Bladder Status: Voiding Urinary Elimination: Voided - Exam General: Alert, Oriented HEENT: Pupils Equal, Pupils Reactive Neck: Supple Lungs: Normal Respiratory Effort Cardiovascular: Regular Rate, Regular Rhythm GI/Abdominal Exam: Normal Bowel Sounds, Soft Extremities: No Pedal Edema, Normal Capillary Refill Skin: Warm, Dry, Intact Wound/Incisions: Healing Well Psy/Mental Status: Alert, Normal Affect, Normal Mood - Problem List & Annotations (1) Perineal laceration SNOMED Code(s): 853426738 Code(s): NZX2632 - Status: Acute Current Visit: Yes (2) Normal vaginal delivery SNOMED Code(s): 03382358, 571707584 Code(s): O80 - ENCOUNTER FOR FULL-TERM UNCOMPLICATED DELIVERY Status: Acute Current Visit: Yes (3) (infant) SNOMED Code(s): 888775511 Code(s): Z78.9 - OTHER SPECIFIED HEALTH STATUS Status: Acute Current Visit: Yes (4) SNOMED Code(s): 10833865 Code(s): Z34.90 - ENCNTR FOR SUPRVSN OF NORMAL , UNSP, UNSP TRIMESTER Status: Acute Current Visit: Yes Qualifiers: Weeks of gestation: 39 weeks Qualified Code(s): Z3A.39 - 39 weeks gestation of - Problem List Review Problem List Initiated/Reviewed/Updated: Yes - Assessment Assessment:: 10/24/2018 28 yo G2 now P2 here at 39 5/7 weeks gestation delivered without complications 1st degree perineal laceration repaired Labs-O negative, Hep B neg, Hep C neg, HIV neg, RPR nonreactive, Rubella Immune , GBS negative, Hgb-11.2 10/25/2018 day one Perineal laceration-no signs of hematoma Voiding and passing gas Fundus firm and bleeding decreasing Happy with well HGB-10.3 10/26/18 PPD 2 D/C Mood happy Voiding, flow light going much better Wants to go home White count 10.6 HGB 10.8 Rhogam given - Plan Plan:: 10/24/2018 28 yo here at 39 5/7 gestational weeks came in in active labor SVE-4-/-1 bulging bag of saucedo FHTs- category one Patient is requesting and epidural Plan- Get patient an epidural for pain control per her request Continue to monitor for active labor Continue to monitor FHTs Plan and anticipate a vaginal delivery 10/24/2018 Routine cares Can resume atarax for RLS Encourage and support 10/25/2018 Continue routine cares Continue to encourage and support Plan discharge home tomorrow CBC in am 10/26/18 Home today 6 week post visit
== END 2018-10-26 11:30 | disposition home or self-care (01) | DRG 807 ==
LOC: JP.OBCHECK 19:31 → JP.OB 19:57 → OBSVTOIN 23:42 → JP.MS 10-25 01:00
PROVIDERS: ADMIT Advanced Practice Midwife; ATTEND Advanced Practice Midwife
PROC: 10E0XZZ Delivery of Products of Conception, External Approach (ICD-10-PCS; principal; 2018-10-24)
PROC: 0HQ9XZZ Repair Perineum Skin, External Approach (ICD-10-PCS; principal; 2018-10-24)
PROC: 3E0234Z Introduction of Serum, Toxoid and Vaccine into Muscle, Percutaneous Approach (ICD-10-PCS; 2018-10-24)
PROC: 3E0R3BZ Introduction of Anesthetic Agent into Spinal Canal, Percutaneous Approach (ICD-10-PCS; 2018-10-24)
PROC: 00HU33Z Insertion of Infusion Device into Spinal Canal, Percutaneous Approach (ICD-10-PCS; 2018-10-24)
DX: O99.344 Other mental disorders complicating childbirth (principal); Z37.0 Single live birth; Z3A.39 39 weeks gestation of pregnancy; F41.9 Anxiety disorder, unspecified; F32.9 Major depressive disorder, single episode, unspecified; O69.81X0 Labor and delivery complicated by cord around neck, without compression, not applicable or unspecified; O70.0 First degree perineal laceration during delivery; O26.893 Other specified pregnancy related conditions, third trimester; Z67.41 Type O blood, Rh negative; Z87.891 Personal history of nicotine dependence
CPT/HCPCS: 36415; 36430; 51702; 59409; 80305-QW; 81001; 85025; 85027; 85460; 86850; 86900; 86901; 99211; A9270-GY; J2405; J2590; J2790; J2795; J7120

== ENCOUNTER 2023-03-07 19:09 | Emergency (ER) | payer MEDICAID | END 2023-03-07 20:10 | disposition home or self-care (01) | LOC: JP.ED 19:09 | DX: S16.1XXA Strain of muscle, fascia and tendon at neck level, initial encounter (principal); Z86.16 Personal history of COVID-19 | CPT/HCPCS: 99282; 99283 ==

== ENCOUNTER 2023-07-23 03:54 | Emergency (ER) | payer MEDICAID, OTHER ==
[2023-07-23] MEDS: Alum Hydrox/Mag Hydrox/Simeth 15 ML, Lidocaine 2% 15 ML PO ONE (04:48)
[2023-07-23] MEDS: methylPREDNISolone Sodium Succinate 125 MG/2 ML SDV IM ONE (05:10)
== END 2023-07-23 05:51 | disposition home or self-care (01) ==
LOC: JP.ED 03:54
DX: J02.9 Acute pharyngitis, unspecified (principal); Z91.048 Other nonmedicinal substance allergy status; Z86.16 Personal history of COVID-19
CPT/HCPCS: 87651; 96372; 99283; A9270; J2930